=== PATIENT | female | born 1955 | race Caucasian/White ===

== ENCOUNTER 2020-05-07 13:52 | Emergency (ER) | payer OTHER ==
[2020-05-07 14:01] VITALS: BMI 26.0
[2020-05-07] MEDS ORDERED: SODIUM CHLORIDE 0.9% 1000 ML INFUS.BAG IV ONE (14:39)
[2020-05-07] MEDS ORDERED: SODIUM CHLORIDE 1,000 ML IV STA (14:47)
[2020-05-07 15:48] LABS: BASO % 0.7 % (0-2.0); HEMATOCRIT 47.1 % (32.4-45.2); HEMOGLOBIN 15.8 GM/dL (10.7-15.3); LYMPH % 16.4 % (8-40); MCH 33.6 pg (25.7-33.7); MCHC 33.5 g/dl (32.0-36.0); MEAN CELL VOLUME 100.3 fl (80-96); MEAN PLT VOLUME 9.1 fl (7.5-11.1); MONO % 4.8 % (3.8-10.2); NEUT % 77.1 % (42.8-82.8); PLATELET COUNT 263 K/MM3 (134-434); RBC 4.69 M/mm3 (3.60-5.2); WHITE BLOOD COUNT 8.5 K/mm3 (4.0-10.0)
[2020-05-07 18:50] LABS: POTASSIUM 4.2 mmol/L (3.5-5.1)
[2020-05-07 18:52] LABS: CALCIUM 9.5 mg/dL (8.5-10.1)
[2020-05-07 18:53] LABS: ALBUMIN 3.9 g/dl (3.4-5.0); BLOOD UREA NITROGEN 7.7 mg/dL (7-18)
[2020-05-07 18:56] LABS: CREATININE 0.7 mg/dL (0.55-1.3)
[2020-05-07 18:57] LABS: BILIRUBIN,TOTAL 0.7 mg/dL (0.2-1)
[2020-05-07 21:07] VITALS: BP 148/88; PULSE 76; TEMP 98.2
[2020-05-07] MEDS ORDERED: MAGNESIUM CITRATE 300 ML BOTTLE PO ONE (21:17)
[2020-05-07] MEDS ORDERED: MAGNESIUM CITRATE 300 ML BOTTLE ONE (21:19)
== END 2020-05-07 21:26 | disposition home or self-care (01) ==
LOC: JER 13:52
DX: R10.9 Unspecified abdominal pain (principal)
CPT/HCPCS: 36415; 74018-TC-FY; 74177-TC; 80053; 85025; 99285-25; Q9967